=== PATIENT | male | born 1945 | race Caucasian/White ===

== ENCOUNTER 2016-12-18 10:27 | Inpatient (IN) ==
--- NOTE | 2016-12-18 12:03 | CT Report ---
CT head/brain wo con INDICATION: Vision changes Dizziness The total DLP is 1073 mGy*cm. COMPARISON: Noncontrast CT head dated 06/18/2012 Technique: Serial axial tomographic images of the brain were obtained without the use of intravenous contrast. Dose reduction: This CT exam was performed using one or more of the following dose reduction techniques: Automated exposure control, automated adjustment of the mA and/or KV according to patient size, or use of iterative reconstruction technique. Findings: Mild generalized atrophy is noted with mild prominence of the sulci and cortical volume loss. Periventricular white matter hypodensity changes are noted bilaterally which do not demonstrate mass effect and are nonspecific but favored to represent sequela of chronic microvascular ischemia. There is no evidence of vascular territory infarct or acute intracranial hemorrhage. The vogt-white matter differentiation is generally maintained. There is no hydrocephalus. The basilar cisterns are patent. The visualized paranasal sinuses, mastoid air cells and middle ear cavities are predominantly clear. Filling defects within the right external ear canal likely represent cerumen impaction. The included orbits and their contents appear within normal limits. The visualized osseous structures and overlying soft tissues of the skull and face demonstrate no acute abnormality. IMPRESSION: No acute intracranial abnormality. Mild generalized atrophy and sequela of chronic microvascular ischemia. PROCEDURE INTERPRETED AT [facility] DEPARTMENT OF RADIOLOGY Final Report Signed by: Wayne Mueller
[2016-12-18 12:06] LABS: Basophils # 0.1 10*3/uL (0.0-0.2); Eosinophils # 0.4 10*3/uL (0.0-0.87); Eosinophils % 5.7 % (0.00-10.9); Hematocrit 44.7 VOL% (42.0-52.0); Hemoglobin 15.4 GM/DL (14.0-18.0); Immature Granulocytes % 0.2 %; Immature Granulocytes Absolute 0.01 #; Lymphocytes # 1.9 10*3/uL (1.4-4.0); Lymphocytes % 30.2 % (21.2-54.2); Mean Corpuscular HGB Conc 34.5 GM/DL (32-36); Mean Corpuscular Hemoglobin 32 PG (27-34); Mean Corpuscular Volume 91.4 FL (87-102); Mean Platelet Volume 9.9 FL (9.6-12.0); Monocytes # 0.5 10*3/uL (0.11-0.8); Neutrophils # 3.4 10*3/uL (1.4-7.4); Neutrophils % 54.9 % (38.7-73.9); Platelet Count 134 T/CUMM (130-400); Red Blood Count 4.89 MC/CUMM (3.8-5.5); Red Cell Distribution Width 12.8 % (9.3-17.3); White Blood Count 6.2 T/CUMM (4-12)
[2016-12-18] MEDS ORDERED: LABETALOL 20 MG/4 ML SYRINGE IV PRN (12:18)
[2016-12-18 12:38] LABS: Albumin 3.7 G/DL (3.4-5.0); Bilirubin,Total 0.6 MG/DL (0.2-1.0); Calcium 9.2 MG/DL (8.5-10.1); Magnesium 2.4 MG/DL (1.8-2.4); Osmolality,Calculated 284.1 MOS/KG (273-304); Potassium 4.8 MMOL/L (3.5-5.1); Total Protein 6.6 G/DL (6.4-8.3)
--- NOTE | 2016-12-18 12:56 | Hospitalist History & Physical ---
<Brenda Bellamy - Last Filed: 12/18/16 12:41> Assessment and Plan - Time spent with patient Time spent with patient: Greater than 30 minutes (1) TIA (transient ischemic attack) Status: Acute Assessment and plan: Admit. MRI. MRA. Carotid Dopplers. Consult Neurology. Lab in a.m. Bedside swallow evaluation. Consult OT and PT. Continue BP home medications. Current Visit: Yes History of Present Illness Chief complaint: dizziness, brief vision changes History of present illness: Mr. Srinivasan is a very pleasant 71 year old white male presented to [facility] ED for complaint of an episode today of vision changes (1/2 of his vision field went dark), with concurrent dizziness and headache. Patient verbalized episode occurred around 9 a.m. and lasted for a few minutes. He states "it was like a curtain came over 1/2 of my eye, so I moved the piece of paper that I was looking at, to see better". Patient has a past medical history of TIA, hypertension, and kidney stone. He reports his last TIA on . He had followed up with Dr Rene about 5 days ago and was scheduled for MRI for this Saturday. Social history: does not smoke, no alcohol and no illicit drug use. His vision is back to normal at present but still having some dizziness and Headache. Denies any fatigue, nausea, vomiting, chest pain, chills or fever. After Discussion with Dr Gallegos, ED physician and Dr Celaya, Hospitalist Physician, it is in agreement that the patient needs to be admitted to hospitalist services for further evaluation. Home medications to be reconciled to foloow. Full Code Status. PCP: Dr rene Home Medications Medication Instructions Recorded Confirmed Type Aspirin EC Tab 81 mg PO DAILY 12/18/16 12/18/16 History Garlic [Garlique] 5,000 mcg PO DAILY 12/18/16 12/18/16 History Multivitamin [Multivitamins] 1 each PO BID 12/18/16 12/18/16 History [place]-3/Dha/Epa/Fish Oil [[place]-3 1,000 mg PO BID 12/18/16 12/18/16 History Fish Oil 1,000 mg Sfgl] Valsartan 160 mg PO DAILY 12/18/16 12/18/16 History Allergies Allergy/AdvReac Type Severity Reaction Status Date / Time morphine AdvReac Hallucinati Verified 12/18/16 10:45 ng Medical,Surgical,& Family Hx - Medical History Cardio: History of: Hypertension Neurology: History of: TIA Genitourinary: History of: Kidney Stones - Surgical History Thoracic Surgeries: Surgical HX of;: Lithotripsy Orthopedic Surgeries: Surgical HX of;: Orthopedic Surgery (right knee scope; both shoulder scopes) - Social History Smoking Status: Never smoker Frequency of Alcohol Use: None Type of Drug Use: None Review of systems: ROS completed and pertinent positives and negatives in HPI Exam - Constitutional Vitals: Period Temp Pulse Resp BP Sys/Mcarthur Pulse Ox Last 24 Hr 98.5 F-98.5 F 55-61 16-17 140-159/90-107 96-99 General appearance: normal weight - Head Head exam: Present: normal inspection - Eye Eye exam: Present: EOMI Pupils: Present: JAROCHO - Neck Neck exam: Present: normal inspection - Respiratory Respiratory exam: Present: clear to auscultation bilaterally - Cardiovascular Cardiovascular exam: Present: regular rate and rhythm - GI/Abdominal GI/Abdominal exam: Present: normal bowel sounds, soft. Absent: tenderness, rebound - Extremities Exam Extremities exam: Present: full ROM. Absent: edema - Neurological Exam Neurological exam: Present: alert, oriented X3, CN II-XII intact (patient does has some dizziness and c/o mild headache; able to move all extremeties; follows commands; ) - Psychiatric Psychiatric exam: Present: normal affect, normal mood - Skin Skin exam: Present: normal color, warm, dry Results - Labs CBC & BMP: 12/18/16 12:02 12/18/16 12:02 Lab Results: I have reviewed the past 24 hour labs - Diagnostic Findings Procedure: CT: report reviewed by me (Head: No acute intracranial abnormality, mild generalized atrophy and sequela of chronic microvascular ischemia) <Israel Celaya - Last Filed: 12/18/16 13:25> Assessment and Plan (1) TIA (transient ischemic attack) Status: Acute Current Visit: Yes History of Present Illness History of present illness: Mr. Srinivasan is a 71 year old male with a 23 year history of high blood pressure on active treatment. Patient is chronically on low-dose aspirin therapy. Last week the patient had a few minutes of left hand lack of dexterity while typing. He noticed no weakness no involvement of the right hand. He is a right hand dominant but was unaware of any gross motor dysfunction on the left side. He seen his primary provider who is scheduled him for 21 December for an MRI of the head. Patient presents to emergency room today with episode of complete loss of vision over the lower 1/3-1/2 of the visual field. Vision was clear in the upper portion. The distribution of the vision loss which uniform the patient did not test whether it was unilateral or not. Shortly after this began he had a sensation of lightheadedness followed by a dull headache. The visual changes lasted only for a few minutes and the overall syndrome lasted probably 15-30 minutes. He resolve completely. On this occasion there was no upper extremity symptoms. Patient's neurologic examination is intact. His cardiopulmonary examination is unremarkable with no evidence of peripheral atherosclerosis. He has history of renal stones with previous parathyroidectomy but normal calcium level on blood work today I have reviewed the nursing admit note and orders. Medical,Surgical,& Family Hx - Medical History Genitourinary: History of: Kidney Stones (History of hyperparathyroidism) - Surgical History Orthopedic Surgeries: Surgical HX of;: Orthopedic Surgery Exam - Constitutional Vitals: Period Temp Pulse Resp BP Sys/Mcarthur Pulse Ox Last 24 Hr 98.5 F-98.5 F 55-61 16-17 140-164/90-107 96-99 Results - Labs CBC & BMP: 12/18/16 12:02 12/18/16 12:02
--- NOTE | 2016-12-18 12:59 | Ultrasound Report ---
Bilateral carotid Doppler. Indication: TIA. Grayscale, color-flow, and spectral analysis performed and interpreted. Comparison: June 18, 2012. Mild atherosclerotic changes are seen at the right carotid bulb and the origins of both external carotid arteries. The right internal carotid artery peak systolic velocity is 64 cm/s, with an IC/CC ratio of 0.8. The left internal carotid artery peak systolic velocity is 73 cm/s, with an IC/CC ratio of 1.0. There is antegrade flow within each vertebral artery. Impression: Using NASCET criteria, findings consistent with less than 50% stenosis bilaterally. PROCEDURE INTERPRETED AT [facility] DEPARTMENT OF RADIOLOGY Final Report Signed by: Dr. Leesa Hayden
[2016-12-18 14:07] LABS: Cholesterol 211 MG/DL (50-200); HDL Cholesterol 44 MG/DL (40-60); Triglycerides 234 MG/DL (2-150); Troponin I Only < 0.015 NG/ML (0.00-0.045); VLDL CHOLESTEROL 46.8 MG/DL
--- NOTE | 2016-12-18 14:56 | Event Note ---
Patient gone for MRI.
--- NOTE | 2016-12-18 15:58 | ECHO Report ---
Zenobia Srinivasan Exam Date: 12/18/2016 12:51 Referring Physician: Technologist: maryan Alford ARDMS, RVT Age: 71 Ht (in): 69 Wt (lb): 180 Gender: M Exam Location: [facility] Echo Indications: Essential (primary) hypertension, Dizziness and giddiness, Visual changes, TIA, Headache BP: 164 / 100 HR: 57 Rhythm: Sinus Technical Quality: Fair IMPRESSIONS 1. Left ventricle is upper limits normal size with mild concentric left ventricular hypertrophy. Ejection fraction is 45-50%. 2. Right ventricle is mildly dilated. 3. Left atrium is mildly dilated. 4. Aortic valve slightly sclerotic but without stenosis or insufficiency. 5. Mitral valve is minimally sclerotic thickened with mild regurgitation. 6. There is no gross source for emboli visualized. MEASUREMENTS (Male / Female) Normal Values 2D ECHO LV Diastolic Diameter PLAX 5.9 cm 4.2 - 5.9 / 3.9 - 5.3 cm LV Systolic Diameter PLAX 4.2 cm LV Fractional Shortening PLAX 28.9 % IVS Diastolic Thickness 1.1 cm 0.6 - 1.0 / 0.6 - 0.9 cm LVPW Diastolic Thickness 1.1 cm 0.6 - 1.0 / 0.6 - 0.9 cm RV Internal Dim ED PLAX 4.3 cm Aortic Root Diameter 4.0 cm LA Systolic Diameter LX 4.1 cm 3.0 - 4.0 / 2.7 - 3.8 cm DOPPLER TR Peak Velocity 239.0 cm/s TR Peak Gradient 22.8 mmHg FINDINGS Left Ventricle Left ventricle is upper limits of normal size. Mild left ventricular hypertrophy. Left ventricular ejection fraction is estimated at 45-50 %. Right Ventricle Mildly increased right ventricular size. Right Atrium The right atrium is normal size. Left Atrium The left atrium is mildly enlarged. Mitral Valve Mitral valve sclerosis. Mild mitral valve regurgitation. Aortic Valve Aortic valve is probably a tricuspid structure there is minimally sclerotic without stenosis. There is no aortic regurgitation. Tricuspid Valve Morphologically normal tricuspid valve. Trace tricuspid valve regurgitation. Tricuspid regurgitation velocities suggest a PAP of 28- 33 mmHg. Pulmonic Valve Morphologically normal pulmonic valve without significant stenosis. There is no pulmonic regurgitation. Pericardium Normal pericardium without effusion. Aorta Normal ascending aorta dimension. Servando Perez MD (Electronically Signed) Final Date: 18 December 2016 15:56
--- NOTE | 2016-12-18 16:03 | Magnetic Resonance Report ---
Exam: MR head/brain wo con Date: 12/18/2016 12:20 PM Comparison: CT brain 12/18/2016 Indication: TIA Technical: 1.5 Rosana magnet Axial T1 pre-and postcontrast, ADC, DWI, FLAIR, gradient echo and FSE T2 Sagittal T1 precontrast, Coronal FSE T2 Contrast: 0 cc Dotarem Findings: Exam reveals abnormal ADC diffusion imaging with an area of acute infarction in the left posterior parietal lobe.. The brainstem normal signal characteristics. Minimal atrophic changes in the cerebellum. The cerebral hemispheres exhibit no other areas of abnormal signal are present in the cerebral hemispheres other than the abnormal signal characteristics in the acute infarction in the ADC and DWI image and the left parietal lobe posteriorly. The corpus callosum is unremarkable. The seventh and eighth cranial nerves and cerebral pontine angles are intact. The pituitary gland, infundibulum and optic chiasm are intact. The paranasal sinuses exhibit normal signal characteristics. The mastoid sinuses are unremarkable. The globes and intra-and extraconal spaces are unremarkable. Impression: 1. Acute infarction involving the left parietal lobe posterior medially 2. Minimal atrophic changes in the cerebellum PROCEDURE INTERPRETED AT [facility] DEPARTMENT OF RADIOLOGY Final Report Signed by: Dr. Antonio Pedraza
--- NOTE | 2016-12-18 16:05 | Magnetic Resonance Report ---
Exam: MR angio head wo tank (MICHELLE) Date: 12/18/2016 12:21 PM Indication: TIA Comparison: Routine CT 12/18/2016 and MRI of the brain Technical 3-D slab imaging and 3-D reproduction images were obtained without contrast on the 1.2 Rosana magnet Findings: The A1 and A2 segment, M1 and M2 bifurcation trifurcation regions are intact. The posterior cerebral P1 and P2 segments are intact the basilar artery and internal carotid arteries and proximal vertebral arteries are intact. The anterior and posterior to indicating arteries are not well seen. Impression: 1. No obvious stenosis or aneurysmal dilatation present. PROCEDURE INTERPRETED AT [facility] DEPARTMENT OF RADIOLOGY Final Report Signed by: Dr. Antonio Pedraza
[2016-12-18] MEDS: SODIUM CHLORIDE 0.9% 1,000 ML IV SCH (16:13)
[2016-12-19] MEDS: SODIUM CHLORIDE 0.9% 1,000 ML IV SCH ×2 (00:30→04:13)
[2016-12-19 05:06] LABS: Basophils % 0.7 % (0.0-0.8); Eosinophils # 0.3 10*3/uL (0.0-0.87); Eosinophils % 5.9 % (0.00-10.9); Hematocrit 42.1 VOL% (42.0-52.0); Hemoglobin 14.7 GM/DL (14.0-18.0); Immature Granulocytes % 0.4 %; Immature Granulocytes Absolute 0.02 #; Lymphocytes # 1.7 10*3/uL (1.4-4.0); Lymphocytes % 30.3 % (21.2-54.2); Mean Corpuscular HGB Conc 34.9 GM/DL (32-36); Mean Corpuscular Hemoglobin 32 PG (27-34); Mean Corpuscular Volume 90.5 FL (87-102); Mean Platelet Volume 10.4 FL (9.6-12.0); Monocytes # 0.3 10*3/uL (0.11-0.8); Monocytes % 5.9 % (1.7-12.7); Neutrophils # 3.2 10*3/uL (1.4-7.4); Neutrophils % 56.8 % (38.7-73.9); Platelet Count 133 T/CUMM (130-400); Red Blood Count 4.65 MC/CUMM (3.8-5.5); Red Cell Distribution Width 12.6 % (9.3-17.3); White Blood Count 5.6 T/CUMM (4-12)
--- NOTE | 2016-12-19 07:21 | Hospitalist Progress Note ---
Assessment and Plan (1) TIA (transient ischemic attack) Status: Acute Assessment and plan: MRI positive for a focal left parietal acute lesion. Current Visit: Yes (2) Hypertension Status: Chronic Current Visit: Yes Hospitalist: Subjective Interval history: 71-year-old male hypertensive on chronic aspirin therapy had 2 events over the last week. The first approximately 1 week ago involved discoordination of left upper extremity while trying to type. He had been seen by his primary provider and scheduled for an MRI on 21 December. He presented to the emergency room yesterday with visual field defect. His CT scan of the head was unremarkable his MRI demonstrates acute infarction in the left parietal lobe posteriorly with minimal atrophic changes in the cerebellum. His MRA was unremarkable. Patient has had no recurrence of the symptoms. He was unavailable for neurology consult last evening. Vital signs overnight were stable. Exam - Constitutional Vitals: Period Temp Pulse Resp BP Sys/Mcarthur Pulse Ox Last 24 Hr 96.6 F-98.5 F 51-64 16-22 135-164/78-107 94-99 General appearance: normal weight, no acute distress - Respiratory Respiratory exam: Present: clear to auscultation bilaterally. Absent: rales, rhonchi, wheezes - Cardiovascular Cardiovascular exam: Present: regular rate and rhythm. Absent: carotid bruit, diastolic murmur, systolic murmur - GI/Abdominal GI/Abdominal exam: Present: normal bowel sounds. Absent: tenderness - Extremities Exam Extremities exam: Absent: edema - Neurological Exam Neurological exam: Present: alert, oriented X3 Results - Labs CBC & BMP: 12/19/16 04:27 12/18/16 12:02 - Diagnostic Findings Procedure: Ultrasound: image reviewed by me (Cardiac ultrasound interpretation is unremarkable review suggest possible atrial septal aneurysm.) Specialty Discharge - Follow Up or Referrals
--- NOTE | 2016-12-19 08:08 | EKG Report ---
Stationary ECG Study [facility] ER Test Date: 12/18/2016 12:06:42 PM Pat Name: MARLENE ZURITA Department: Room: 423 Gender: M Bulb Filler: : 1945 Requested by: Thomas Han Order Number: [id number] Iman MD: TUSHAR COX Intervals [place] Rate: 52 P: 41 AK: 157 QRS: -1 QRSD: 146 T: -1 QT: 445 QTc: 425 Interpretive Statements SINUS BRADYCARDIA RIGHT BUNDLE BRANCH BLOCK Electronically Signed On 12-19-16 09:26:20 CDT by TUSHAR COX [email or web address]
[2016-12-19] MEDS ORDERED: ASPIRIN EC 81 MG TABLET PO SCH (09:00)
[2016-12-19] MEDS ORDERED: VALSARTAN 160 MG TABLET PO SCH (09:00)
[2016-12-19 16:09] VITALS: BP 148/86
--- NOTE | 2016-12-19 16:26 | Neurology Consult Note ---
History of Present Illness History of present illness: Mr. Srinivasan is a 71 year old right-handed white gentleman presented to [facility] for complaint of vision difficulties and right-sided mild weakness which happened yesterday. Is also complaining concurrent dizziness and headache. Patient verbalized episode occurred around 9 a.m. and lasted for a few minutes yesterday morning. He states "it was like a curtain came over 1/2 of my eye, so I moved the piece of paper that I was looking at, to see better". A week ago he had an episode where his left arm went numb and weak. Patient has a past medical history of TIA, hypertension, and kidney stone. He underwent MRI of the brain which revealed left posterior parietal lobe acute infarct. Lipid profile is abnormal. Carotid ultrasound and echo looks okay Home Medications Medication Instructions Recorded Confirmed Type Aspirin EC Tab 81 mg PO DAILY 12/18/16 12/18/16 History Garlic [Garlique] 5,000 mcg PO DAILY 12/18/16 12/18/16 History Multivitamin [Multivitamins] 1 each PO BID 12/18/16 12/18/16 History [place]-3/Dha/Epa/Fish Oil [[place]-3 1,000 mg PO BID 12/18/16 12/18/16 History Fish Oil 1,000 mg Sfgl] Valsartan 160 mg PO DAILY 12/18/16 12/18/16 History Allergies Allergy/AdvReac Type Severity Reaction Status Date / Time morphine AdvReac Hallucinati Verified 12/18/16 10:45 ng 12 point system: reviewed and no additional remarkable complaints except as stated Medical,Surgical,& Family Hx - Medical History Cardio: History of: Hypertension Neurology: History of: TIA Genitourinary: History of: Kidney Stones (History of hyperparathyroidism) - Surgical History Thoracic Surgeries: Surgical HX of;: Lithotripsy Orthopedic Surgeries: Surgical HX of;: Orthopedic Surgery - Social History Smoking Status: Never smoker Frequency of Alcohol Use: None Type of Drug Use: None Exam - Constitutional Vitals: Period Temp Pulse Resp BP Sys/Mcarthur Pulse Ox Last 24 Hr 97.1 F-97.9 F 51-64 18-22 135-161/78-91 94-95 Exam: GENERAL: Patient is in no acute distress. NECK: Neck is supple. There is no JVD. No carotid bruits present. No thyroid masses. CVS: First and second heart sounds are normal. There is no S3 present. Regular rate and rhythm. RESPIRATORY: Lungs are clear to auscultation without any rales or rhonchi. ABDOMEN: Soft and non-tender. Bowel sounds are present. There is no hepatosplenomegaly. EXT: There is no palpable edema. Peripheral pulses are present. Skin: No rashes Central Nervous system: General: Alert, awake and Oriented x 3 Speech: Fluent Comprehension: Intact and normal Facial expressions: Normal Cranial Nerves: CN1/Olfactory: Normal CN II/ Optic: Normal, Visual Cleaning unreliable CN III, and : JAROCHO & EOMI CN V: Normal & intact CN VII: face is symmetric CNVIII: Normal CN XI/X/XI/XII: Intact and Normal Motor: Bulk and Tone is normal. Strength in the right 5/5 Strength in the left 5/5 Sensory: Grossly intact for all the modalities of PP, LT and temp sense Reflexes: 1+ and symmetrical Cerebellar function: Normal finger to nose and heel to jin testing. Toes: Equivocal Gait: Normal heel to heel and toe to toe and tandem walk. Results - Labs CBC & BMP: 12/19/16 04:27 12/18/16 12:02 Assessment and Plan (1) Acute CVA (cerebrovascular accident) Status: Acute Assessment and plan: Stop aspirin Aggrenox 1 p.o. twice daily Current Visit: Yes (2) Hyperlipidemia Status: Acute Assessment and plan: Start Crestor 10 mg p.o. at bedtime Current Visit: Yes (3) Hypertension Status: Chronic Assessment and plan: Continue current medications. Blood pressure is quite stable. Okay to go home from neuro stand point Follow-up in 4 weeks Current Visit: Yes Specialty Discharge - Follow Up or Referrals Follow up with: Zac Turner MD [Physician] - 1 Month
--- NOTE | 2016-12-19 16:55 | Discharge Summary ---
Hospital Course - Hospital Course Hospital Course: 71-year-old male chronic hypertensive on daily aspirin therapy sustained 2 separate in time as well as in distribution neurologic events over the preceding week. Initial CT scan of the head was unremarkable with subsequent MRI demonstrating a lesion consistent with a small area of acute infarction in the left parietal lobe posteriorly. There was slight cerebellar atrophy. Vascular study with MRI was in echocardiographic study evaluation was negative and the patient was in sinus rhythm throughout the hospital stay. Evaluated by neurology who recommended discontinuance of aspirin and initiation of Aggrenox. They also recommended initiation of lipid-lowering therapy however the patient 's family has concerns regarding potential muscle related side effects and declined use the agents. He is being discharged at this time to continue his blood pressure medications with the adjustments noted above. Diagnosis - Discharge Diagnosis (1) TIA (transient ischemic attack) Status: Acute (2) Hypertension Status: Chronic Specialty Discharge - Follow Up or Referrals Follow up with: Zac Turner MD [Physician] - 1 Month Discharge Plan - Discharge Data Disposition: Disch To Home/Self Care Condition at Discharge: Stable Discharge Diet: advance to your usual diet Activity: resume usual activities as tolerated - Discharge Medications New Dipyridamole/Aspirin 200-25 [Aggrenox] 1 capsule PO BID #60 capsule Continue [place]-3/Dha/Epa/Fish Oil [[place]-3 Fish Oil 1,000 mg Sfgl] 1,000 mg PO BID Valsartan 160 mg PO DAILY Multivitamin [Multivitamins] 1 each PO BID Discontinued Aspirin EC Tab 81 mg PO DAILY No Action Garlic [Garlique] 5,000 mcg PO DAILY - Follow Up or Referral Follow Up: Zac Turner MD [Physician] - 1 Month - Forms/Instructions Instructions: Ischemic Stroke (DC) Exam - Constitutional Vitals: Period Temp Pulse Resp BP Sys/Mcarthur Pulse Ox Last 24 Hr 97.1 F-97.9 F 56-64 18-22 135-161/78-91 94-95 Discharge Results Procedures and tests throughout hospitalization: Pending Orders 12/18/16 11:51 Thyroid Function Wallace, S Stat Labs on day of discharge: Labs from last 24 hours 12/19/16 12/18/16 04:27 17:52 WBC 5.6 RBC 4.65 Hgb 14.7 Hct 42.1 MCV 90.5 MCH 32 MCHC 34.9 RDW 12.6 Plt Count 133 MPV 10.4 Neut % (Auto) 56.8 Lymph % (Auto) 30.3 [place] % (Auto) 5.9 Eos % (Auto) 5.9 Baso % (Auto) 0.7 Neut # (Auto) 3.2 Lymph # (Auto) 1.7 [place] # (Auto) 0.3 Eos # (Auto) 0.3 Baso # (Auto) 0.0 Immature Gran % 0.4 Nucleated RBC % 0.0 Immature Gran # 0.02 Nucleated RBCs # 0.00 Troponin I < 0.015 DS: Provider Date of admission: 12/18/16 12:13 Primary care physician: Lucho Long MD Attending physician on admission: Israel Celaya MD Consults: 12/18/16 12:18 Consult to Case Mgmt/Social Srvs [CONS] Routine Reason for Case Mgmt/Social Srvs: Discharge Planning Consult to Occupational Therapy [CONS] Routine Reason for Occupational Therapy: Evaluate and Treat Consult Comment: Stroke Consult to Physical Therapy [CONS] Routine Reason for Physical Therapy: Evaluate and Treat Consult Comment: stroke 12/18/16 12:22 Consult to Physician [CONS] Routine Comment: TIA Consulting Provider: Zac Turner Consulting Provider Notified: Yes When should Consulting Provider be notified: Now Consult to Specialist Group: Neurology When should Consulting Provider be notified: Now Person Notified: lorenzo Date Notified: 12/18/16 Time Notified: 14:00 Discharging clinician: Israel Celaya MD Expected date of discharge: 12/19/16
[2016-12-19] MEDS ORDERED: DIPYRIDAMOLE/ASPIRIN 200-25 MG CAPSULE PO SCH (21:00)
[2016-12-19] MEDS ORDERED: ROSUVASTATIN 10 MG TABLET PO SCH (21:00)
--- NOTE | 2017-01-31 15:04 | Emergency Department Note ---
Rashi Aguayo Rolonda, am scribing for, and in the presence of, Thomas Gallegos MD 11:43. El Aguayo Phillip K, MD, personally performed the services described in this documentation, ascribed by Mone Markham in my presence, and it is both accurate and complete [id number] . Arrival - Arrival Chief Complaint: Dizziness Stated Complaint: stroke symptoms ED Nursing Triage Note: pt ambulatory to triage with c/o having dizziness with c /o not being able to see good out of right eye earlier today around 0900. pt states vision is better now in right now, c/o headache and still being dizzy. pt states he had a TIA on 12/10/2016. Mode of Arrival: Ambulatory Time Seen by Provider: 12/18/16 11:21 - History of Present Illness HPI Narrative: Pt is a 71 y/o male who ambulated to the ED with c/o vision change with an onset of hours ago. Pt has a PMHx of TIA and HTN and FHx of Strokes. He states that he las had a TIA 12/10/2016 and is f/u by Dr. Hagen; Pt last saw Dr. Hagen x5 days ago and has an upcoming appointment with him this week. Pt states that he is unsure of what exactly happened but he was attempting to write on a piece of paper when he noticed his vision was unclear which lasted 2- 3 minutes. He states that it was "like a curtain coming up from the bottom of the paper." During time of exam, pt's vision was back to nml. He confirms associated sxs of dizziness and GATES but denied CP, N/V, and SHx of smoking. No other complaint/pain in ED. Onset (ago): hour(s) Consistency: constant Severity: moderate Severity scale (1-10): 4 Allergies/Adverse Reactions: Allergies Allergy/AdvReac Type Severity Reaction Status Date / Time morphine AdvReac Hallucinati Verified 12/18/16 10:45 ng Home Medications: Home Medications Medication Instructions Recorded Confirmed Type Garlic [Garlique] 5,000 mcg PO DAILY 12/18/16 12/18/16 History Multivitamin [Multivitamins] 1 each PO BID 12/18/16 12/18/16 History [place]-3/Dha/Epa/Fish Oil [[place]-3 1,000 mg PO BID 12/18/16 12/18/16 History Fish Oil 1,000 mg Sfgl] Valsartan 160 mg PO DAILY 12/18/16 12/18/16 History Dipyridamole/Aspirin 200-25 1 capsule PO BID #60 capsule 12/19/16 Rx [Aggrenox] Review of System - Review of System 12 point system: reviewed and no additional remarkable complaints except as stated - Review of System Constitutional: Absent: chills, fever Eyes: Present: vision change. Absent: discharge, pain Head/Ears/Nose/Throat: Absent: earache, epistaxis Respiratory: Absent: cough, respiratory distress, wheezing Cardiovascular: Absent: chest pain, palpitations, dyspnea on exertion Gastrointestinal: Absent: abdominal pain, nausea, vomiting, diarrhea Musculoskeletal: Absent: arm pain, back pain, leg pain, neck pain Neurological: Present: headache (moderate), vertigo Psychiatric: Absent: anxiety Endocrine: Absent: fatigue Medical,Surgical,& Family Hx - Social History Smoking Status: Never smoker Frequency of Alcohol Use: None Type of Drug Use: None Exam Vital Signs: Vital Signs Temperature 97.8 F 12/19/16 16:00 Pulse Rate 60 12/19/16 16:00 Respiratory Rate 20 12/19/16 16:00 Blood Pressure 148/86 12/19/16 16:00 O2 Sat by Pulse Oximetry 94 L 12/19/16 16:00 - General General appearance: alert, in no apparent distress - Head Head exam: Present: atraumatic, normocephalic - Eye Eye exam: Present: PERRL, EOMI - ENT ENT exam: Present: mucous membranes moist. Absent: mucous membranes dry - Neck Neck exam: Present: full ROM. Absent: tenderness - Chest Chest inspection: Present: symmetric chest wall rise. Absent: tenderness - Respiratory Respiratory exam: Present: normal lung sounds bilaterally. Absent: wheezes - Cardiovascular Cardiovascular exam: Present: regular rate, normal rhythm, normal heart sounds. Absent: bradycardia - Abdominal Exam Abdominal exam: Present: soft, normal bowel sounds. Absent: tenderness - Extremities Exam Extremities exam: Present: full ROM. Absent: tenderness - Back Exam Back exam: Present: full ROM. Absent: tenderness - Neurological Exam Neurological exam: Present: alert, oriented X3, CN II-XII intact - Psychiatric Psychiatric exam: Present: normal affect, normal mood - Skin Skin exam: Present: warm, dry, intact, normal color. Absent: rash Results - Labs CBC & BMP: 12/19/16 04:27 12/18/16 12:02 Lab Results: I have reviewed the patients labs Labs: Laboratory Tests 12/18/16 12:02 WBC 6.2 RBC 4.89 Hgb 15.4 Hct 44.7 Plt Count 134 Baso % (Auto) 1.0 H Laboratory Tests 12/18/16 12:02 Sodium 142 Potassium 4.8 Chloride 105 Carbon Dioxide 30 BUN 19 H GFR Calculation 87 - EKG EKG results: interpreted by VERONICA, sinus rhythm (Sinus bradycardia) - Diagnostic Findings Procedure: CT: report reviewed by me (Head/Brain:No acute intracranial abnormality) Disposition Clinical Impression: TIA (transient ischemic attack) Case discussed with: patient Disposition: Still a Patient Condition: Stable New Prescriptions: Rx's Medication Instructions Recorded Dipyridamole/Aspirin 200-25 1 capsule PO BID #60 capsule 12/19/16 [Aggrenox]
== END 2016-12-19 18:12 | disposition home or self-care (01) | DRG 66 ==
LOC: N.ED 10:27 → N.EDINP 12:13 → N.4E 13:34
PROVIDERS: ADMIT Internal Medicine Cardiovascular Disease; ATTEND Internal Medicine Cardiovascular Disease

== ENCOUNTER 2020-08-16 11:34 | Inpatient (IN) ==
[2020-08-16] MEDS ORDERED: GLUCAGON 1 MG VIAL IM PRN (12:21)
[2020-08-16] MEDS ORDERED: ACETAMINOPHEN 325 MG TABLET PO PRN (12:21)
[2020-08-16] MEDS ORDERED: ONDANSETRON 4 MG/2 ML VIAL IV PRN (12:21)
[2020-08-16] MEDS ORDERED: DOCUSATE SODIUM 100 MG CAPSULE PO PRN (12:21)
[2020-08-16] MEDS ORDERED: DEXTROSE 50% 25 GM/50 ML VIAL IV PRN (12:21)
[2020-08-16] MEDS ORDERED: hydrALAZINE 20 MG/1 ML VIAL IV PRN (12:21)
[2020-08-16 13:35] LABS: Basophils % 0.1 % (0.0-0.8); Hematocrit 43.2 VOL% (42.0-52.0); Hemoglobin 14.8 GM/DL (14.0-18.0); Immature Granulocytes % 0.8 %; Immature Granulocytes Absolute 0.06 #; Lymphocytes # 0.5 10*3/uL (1.4-4.0); Lymphocytes % 6.8 % (21.2-54.2); Mean Corpuscular HGB Conc 34.3 GM/DL (32-36); Mean Corpuscular Volume 91.5 FL (87-102); Mean Platelet Volume 10.4 FL (9.6-12.0); Monocytes % 5.3 % (1.7-12.7); Platelet Count 159 T/CUMM (130-400); Red Blood Count 4.72 MC/CUMM (3.8-5.5); Red Cell Distribution Width 13.2 % (9.3-17.3)
[2020-08-16 13:49] LABS: PT Patient Result 10.9 SECS (9.8-11.9)
[2020-08-16 14:05] LABS: Albumin 3.3 G/DL (3.4-5.0); Bilirubin,Total 1.9 MG/DL (0.2-1.0); Osmolality,Calculated 275.1 MOS/KG (273-304); Potassium 4.2 MMOL/L (3.5-5.1); Total Protein 7.5 G/DL (5.0-7.5)
[2020-08-16 14:10] LABS: Ferritin 483.1 ng/ml (26-388)
[2020-08-16 14:14] LABS: Risk Ratio 3.55; Thyroid Stimulating Hormone 1.14 uIU/ml (0.358-3.74)
[2020-08-16 14:16] LABS: Bacteria,Urine Occasional /HPF (Few); Bilirubin,Urine Negative (Negative); Blood, Urine Negative (Negative); Glucose,Urine (UA) Negative (Negative); Ketones,Urine 5 mg/dL (Negative); Mucus,Urine Many /LPF (Occasional); Nitrite,Urine Negative (Negative); Protein,Urine 100 MG/DL; RBC,Urine 2 /HPF (0-4); Urine Appearance Slightly Hazy (Clear); Urine Color Amber (Yellow); Urine Specific Gravity 1.029 (1.001-1.035); Urine Urobilinogen < 2.0 EU/DL (0.2-1.0); WBC,Urine 2 /HPF (0-6)
[2020-08-16] MEDS ORDERED: NITROGLYCERIN SL 0.4 MG TABLET SL PRN (14:52)
[2020-08-16] MEDS: guaiFENesin/DM ER 600-30 MG TABLET PO PRN (16:11)
[2020-08-16] MEDS: cefTRIAXone 1,000 MG in SYRINGE 1 EACH IV SCH (16:25)
[2020-08-16] MEDS ORDERED: REMDESIVIR 200 MG in SODIUM CHLORIDE 0.9% 210 ML IV ONE (17:00)
[2020-08-16] MEDS: ALBUTEROL INHALER 18 GM INH SCH (18:18)
[2020-08-16] MEDS: carvediloL 3.125 MG TABLET PO SCH (21:51)
[2020-08-16] MEDS: ENOXAPARIN 40 MG/0.4 ML SYRINGE SUBCUT SCH (21:51)
[2020-08-16] MEDS: FAMOTIDINE 20 MG TABLET PO SCH (21:51)
[2020-08-16] MEDS: MULTIVITAMIN (CENTRUM) TABLET PO SCH (21:51)
[2020-08-16] MEDS: ASCORBIC ACID 500 MG TABLET PO SCH (21:52)
[2020-08-16] MEDS: TICAGRELOR 60 MG PO SCH (22:05)
[2020-08-16] MEDS: OMEGA 3 ACID ETHYL ESTERS 1 GM CAPSULE PO SCH (22:09)
[2020-08-17] MEDS: ALBUTEROL INHALER 18 GM INH SCH ×4 (01:59→20:08)
[2020-08-17 06:52] LABS: Hematocrit 42.2 VOL% (42.0-52.0); Hemoglobin 13.8 GM/DL (14.0-18.0); Immature Granulocytes % 1.2 %; Immature Granulocytes Absolute 0.08 #; Lymphocytes # 0.8 10*3/uL (1.4-4.0); Lymphocytes % 11.3 % (21.2-54.2); Mean Corpuscular HGB Conc 32.7 GM/DL (32-36); Mean Corpuscular Volume 95.3 FL (87-102); Mean Platelet Volume 10.4 FL (9.6-12.0); Monocytes % 7.3 % (1.7-12.7); Neutrophils % 80.2 % (38.7-73.9); Platelet Count 157 T/CUMM (130-400); Red Blood Count 4.43 MC/CUMM (3.8-5.5); Red Cell Distribution Width 13.4 % (9.3-17.3); White Blood Count 6.7 T/CUMM (4-12)
[2020-08-17 07:24] LABS: Ferritin 482.2 ng/ml (26-388)
[2020-08-17 07:34] LABS: Osmolality,Calculated 277.7 MOS/KG (273-304); Potassium 3.9 MMOL/L (3.5-5.1)
[2020-08-17] MEDS: ZINC GLUCONATE 50 MG TABLET PO SCH (10:06)
[2020-08-17] MEDS: CHOLECALCIFEROL 1,000 UNIT TABLET PO SCH (10:06)
[2020-08-17] MEDS: ASCORBIC ACID 500 MG TABLET PO SCH ×2 (10:11→20:56)
[2020-08-17] MEDS: guaiFENesin/DM ER 600-30 MG TABLET PO PRN (10:11)
[2020-08-17] MEDS: MULTIVITAMIN (CENTRUM) TABLET PO SCH ×2 (10:11→20:57)
[2020-08-17] MEDS: OMEGA 3 ACID ETHYL ESTERS 1 GM CAPSULE PO SCH ×2 (10:11→20:56)
[2020-08-17] MEDS: carvediloL 3.125 MG TABLET PO SCH ×2 (10:11→20:56)
[2020-08-17] MEDS: CETIRIZINE 10 MG TABLET PO SCH (10:11)
[2020-08-17] MEDS: AZITHROMYCIN 250 MG TABLET PO SCH (10:11)
[2020-08-17] MEDS: LOSARTAN 50 MG TABLET PO SCH (10:12)
[2020-08-17] MEDS: DEXAMETHASONE 4 MG/1 ML VIAL IV SCH (10:12)
[2020-08-17] MEDS: ASPIRIN EC 81 MG TABLET PO SCH (10:12)
[2020-08-17] MEDS: FLUTICASONE 50 MCG NASAL SPRAY 16 GM BOTTLE BOTH NARES SCH (10:13)
[2020-08-17] MEDS: TICAGRELOR 60 MG PO SCH ×2 (10:13→20:57)
[2020-08-17] MEDS: FAMOTIDINE 20 MG TABLET PO SCH ×2 (10:18→20:56)
[2020-08-17] MEDS: REMDESIVIR 100 MG in SODIUM CHLORIDE 0.9% 100 ML IV SCH (10:18)
[2020-08-17 10:51] LABS: ABG Base Excess -0.2 MMOL/L (-2.5-2.5); ABG HCO3 24.2 MMOL/L (20-26); ABG Oxygen Saturation 95.8 % (95-100); ABG PCO2 32.8 MM HG (35-48); ABG PH 7.453 (7.35-7.45); ABG TCO2 19.6 MMOL/L (23-27)
[2020-08-17] MEDS: cefTRIAXone 1,000 MG in SYRINGE 1 EACH IV SCH (17:11)
[2020-08-17] MEDS: ENOXAPARIN 40 MG/0.4 ML SYRINGE SUBCUT SCH (20:56)
[2020-08-17] MEDS: MELATONIN 3 MG TABLET PO PRN (20:56)
[2020-08-18] MEDS: ALBUTEROL INHALER 18 GM INH SCH ×4 (00:37→19:10)
[2020-08-18 07:07] LABS: Basophils % 0.2 % (0.0-0.8); Hemoglobin 14.5 GM/DL (14.0-18.0); Immature Granulocytes % 0.9 %; Immature Granulocytes Absolute 0.06 #; Lymphocytes # 0.6 10*3/uL (1.4-4.0); Lymphocytes % 8.3 % (21.2-54.2); Mean Corpuscular Volume 95.7 FL (87-102); Mean Platelet Volume 10.3 FL (9.6-12.0); Monocytes % 5.7 % (1.7-12.7); Neutrophils % 84.9 % (38.7-73.9); Platelet Count 200 T/CUMM (130-400); Red Cell Distribution Width 13.4 % (9.3-17.3); White Blood Count 6.6 T/CUMM (4-12)
[2020-08-18 07:30] LABS: Ferritin 577.7 ng/ml (26-388)
[2020-08-18 07:37] LABS: Calcium 8.5 MG/DL (8.5-10.1); Osmolality,Calculated 292.3 MOS/KG (273-304); Potassium 4.4 MMOL/L (3.5-5.1)
[2020-08-18] MEDS: REMDESIVIR 100 MG in SODIUM CHLORIDE 0.9% 100 ML IV SCH (08:27)
[2020-08-18] MEDS: DEXAMETHASONE 4 MG/1 ML VIAL IV SCH (08:27)
[2020-08-18] MEDS: carvediloL 3.125 MG TABLET PO SCH ×2 (08:28→21:09)
[2020-08-18] MEDS: CHOLECALCIFEROL 1,000 UNIT TABLET PO SCH (08:28)
[2020-08-18] MEDS: MULTIVITAMIN (CENTRUM) TABLET PO SCH ×2 (08:28→21:10)
[2020-08-18] MEDS: FAMOTIDINE 20 MG TABLET PO SCH ×2 (08:28→21:09)
[2020-08-18] MEDS: ZINC GLUCONATE 50 MG TABLET PO SCH (08:28)
[2020-08-18] MEDS: ASCORBIC ACID 500 MG TABLET PO SCH ×2 (08:28→21:09)
[2020-08-18] MEDS: LOSARTAN 50 MG TABLET PO SCH (08:28)
[2020-08-18] MEDS: CETIRIZINE 10 MG TABLET PO SCH (08:28)
[2020-08-18] MEDS: ASPIRIN EC 81 MG TABLET PO SCH (08:28)
[2020-08-18] MEDS: OMEGA 3 ACID ETHYL ESTERS 1 GM CAPSULE PO SCH ×2 (08:28→21:09)
[2020-08-18] MEDS: AZITHROMYCIN 250 MG TABLET PO SCH (08:29)
[2020-08-18] MEDS: TICAGRELOR 60 MG PO SCH ×2 (08:29→21:10)
[2020-08-18] MEDS: FLUTICASONE 50 MCG NASAL SPRAY 16 GM BOTTLE BOTH NARES SCH (08:29)
[2020-08-18] MEDS: guaiFENesin/DM ER 600-30 MG TABLET PO PRN (10:55)
[2020-08-18] MEDS: cefTRIAXone 1,000 MG in SYRINGE 1 EACH IV SCH (16:06)
[2020-08-18] MEDS: MELATONIN 3 MG TABLET PO PRN (21:09)
[2020-08-18] MEDS: ENOXAPARIN 40 MG/0.4 ML SYRINGE SUBCUT SCH (21:10)
[2020-08-19] MEDS: ALBUTEROL INHALER 18 GM INH SCH ×4 (00:45→18:25)
[2020-08-19 07:11] LABS: Basophils % 0.1 % (0.0-0.8); Hematocrit 36.2 VOL% (42.0-52.0); Hemoglobin 13.4 GM/DL (14.0-18.0); Immature Granulocytes Absolute 0.12 #; Lymphocytes # 0.6 10*3/uL (1.4-4.0); Lymphocytes % 5.1 % (21.2-54.2); Mean Corpuscular Volume 98.1 FL (87-102); Mean Platelet Volume 10.7 FL (9.6-12.0); Monocytes % 4.5 % (1.7-12.7); Neutrophils % 89.3 % (38.7-73.9); Platelet Count 224 T/CUMM (130-400); Red Blood Count 3.69 MC/CUMM (3.8-5.5); Red Cell Distribution Width 14.2 % (9.3-17.3); White Blood Count 12.4 T/CUMM (4-12)
[2020-08-19 07:45] LABS: Calcium 8.6 MG/DL (8.5-10.1); Osmolality,Calculated 295.3 MOS/KG (273-304); Potassium 3.9 MMOL/L (3.5-5.1)
[2020-08-19 07:48] LABS: Ferritin 462.6 ng/ml (26-388)
[2020-08-19] MEDS: TICAGRELOR 60 MG PO SCH ×2 (09:05→20:30)
[2020-08-19] MEDS: MULTIVITAMIN (CENTRUM) TABLET PO SCH ×2 (09:05→20:29)
[2020-08-19] MEDS: carvediloL 3.125 MG TABLET PO SCH ×2 (09:05→20:29)
[2020-08-19] MEDS: CETIRIZINE 10 MG TABLET PO SCH (09:05)
[2020-08-19] MEDS: AZITHROMYCIN 250 MG TABLET PO SCH (09:05)
[2020-08-19] MEDS: ZINC GLUCONATE 50 MG TABLET PO SCH (09:05)
[2020-08-19] MEDS: DEXAMETHASONE 4 MG/1 ML VIAL IV SCH (09:05)
[2020-08-19] MEDS: ASPIRIN EC 81 MG TABLET PO SCH (09:05)
[2020-08-19] MEDS: CHOLECALCIFEROL 1,000 UNIT TABLET PO SCH (09:05)
[2020-08-19] MEDS: LOSARTAN 50 MG TABLET PO SCH (09:05)
[2020-08-19] MEDS: FAMOTIDINE 20 MG TABLET PO SCH ×2 (09:05→20:29)
[2020-08-19] MEDS: ASCORBIC ACID 500 MG TABLET PO SCH ×2 (09:05→20:30)
[2020-08-19] MEDS: OMEGA 3 ACID ETHYL ESTERS 1 GM CAPSULE PO SCH ×2 (09:08→20:29)
[2020-08-19] MEDS: FLUTICASONE 50 MCG NASAL SPRAY 16 GM BOTTLE BOTH NARES SCH (09:08)
[2020-08-19] MEDS: REMDESIVIR 100 MG in SODIUM CHLORIDE 0.9% 100 ML IV SCH (10:02)
[2020-08-19] MEDS: cefTRIAXone 1,000 MG in SYRINGE 1 EACH IV SCH (16:03)
[2020-08-19] MEDS: ENOXAPARIN 40 MG/0.4 ML SYRINGE SUBCUT SCH (20:29)
[2020-08-19] MEDS: MELATONIN 3 MG TABLET PO PRN (20:30)
[2020-08-20] MEDS: ALBUTEROL INHALER 18 GM INH SCH ×4 (00:21→18:09)
[2020-08-20 03:55] LABS: Basophils % 0.2 % (0.0-0.8); Hemoglobin 13.3 GM/DL (14.0-18.0); Lymphocytes # 0.5 10*3/uL (1.4-4.0); Lymphocytes % 5.3 % (21.2-54.2); Mean Corpuscular HGB Conc 36.9 GM/DL (32-36); Mean Platelet Volume 10.2 FL (9.6-12.0); Neutrophils % 88.5 % (38.7-73.9); Platelet Count 238 T/CUMM (130-400); Red Blood Count 3.75 MC/CUMM (3.8-5.5); Red Cell Distribution Width 14.1 % (9.3-17.3); White Blood Count 10.2 T/CUMM (4-12)
[2020-08-20 04:57] LABS: Albumin 2.2 G/DL (3.4-5.0); Calcium 8.5 MG/DL (8.5-10.1); Ferritin 417.9 ng/ml (26-388); Osmolality,Calculated 290.5 MOS/KG (273-304); Potassium 4.2 MMOL/L (3.5-5.1)
[2020-08-20 06:00] LABS: Sedimentation Rate-Westergren 81 MM/HR (0-20)
[2020-08-20] MEDS: CHOLECALCIFEROL 1,000 UNIT TABLET PO SCH (09:50)
[2020-08-20] MEDS: REMDESIVIR 100 MG in SODIUM CHLORIDE 0.9% 100 ML IV SCH (09:50)
[2020-08-20] MEDS: ASPIRIN EC 81 MG TABLET PO SCH (09:50)
[2020-08-20] MEDS: OMEGA 3 ACID ETHYL ESTERS 1 GM CAPSULE PO SCH ×2 (09:50→20:24)
[2020-08-20] MEDS: MULTIVITAMIN (CENTRUM) TABLET PO SCH ×2 (09:50→20:24)
[2020-08-20] MEDS: FLUTICASONE 50 MCG NASAL SPRAY 16 GM BOTTLE BOTH NARES SCH (09:50)
[2020-08-20] MEDS: FAMOTIDINE 20 MG TABLET PO SCH ×2 (09:50→20:24)
[2020-08-20] MEDS: carvediloL 3.125 MG TABLET PO SCH ×2 (09:50→20:24)
[2020-08-20] MEDS: ASCORBIC ACID 500 MG TABLET PO SCH ×2 (09:50→20:24)
[2020-08-20] MEDS: ZINC GLUCONATE 50 MG TABLET PO SCH (09:50)
[2020-08-20] MEDS: CETIRIZINE 10 MG TABLET PO SCH (09:50)
[2020-08-20] MEDS: DEXAMETHASONE 4 MG/1 ML VIAL IV SCH (09:50)
[2020-08-20] MEDS: AZITHROMYCIN 250 MG TABLET PO SCH (09:50)
[2020-08-20] MEDS: LOSARTAN 50 MG TABLET PO SCH (09:50)
[2020-08-20] MEDS: TICAGRELOR 60 MG PO SCH ×2 (09:50→20:24)
[2020-08-20] MEDS: cefTRIAXone 1,000 MG in SYRINGE 1 EACH IV SCH (15:50)
[2020-08-20] MEDS: ENOXAPARIN 40 MG/0.4 ML SYRINGE SUBCUT SCH (20:24)
[2020-08-20] MEDS: MELATONIN 3 MG TABLET PO PRN (20:25)
[2020-08-21] MEDS: ALBUTEROL INHALER 18 GM INH SCH ×4 (00:16→18:20)
[2020-08-21 04:06] LABS: Basophils % 0.3 % (0.0-0.8); Hemoglobin 13.4 GM/DL (14.0-18.0); Immature Granulocytes % 4.3 %; Immature Granulocytes Absolute 0.32 #; Lymphocytes # 0.6 10*3/uL (1.4-4.0); Lymphocytes % 7.9 % (21.2-54.2); Mean Corpuscular HGB Conc 37.2 GM/DL (32-36); Mean Corpuscular Volume 98.9 FL (87-102); Monocytes % 6.4 % (1.7-12.7); Neutrophils % 81.1 % (38.7-73.9); Platelet Count 247 T/CUMM (130-400); Red Blood Count 3.64 MC/CUMM (3.8-5.5); Red Cell Distribution Width 14.4 % (9.3-17.3); White Blood Count 7.5 T/CUMM (4-12)
[2020-08-21 04:26] LABS: Albumin 2.2 G/DL (3.4-5.0); Bilirubin,Total 0.4 MG/DL (0.2-1.0); Calcium 8.3 MG/DL (8.5-10.1); Ferritin 418.6 ng/ml (26-388); Osmolality,Calculated 288.7 MOS/KG (273-304); Potassium 4.4 MMOL/L (3.5-5.1)
[2020-08-21 07:52] LABS: Sedimentation Rate-Westergren 88 MM/HR (0-20)
[2020-08-21 08:42] LABS: Platelet Estimate Normal
[2020-08-21] MEDS: TICAGRELOR 60 MG PO SCH ×2 (09:35→20:00)
[2020-08-21] MEDS: LOSARTAN 50 MG TABLET PO SCH (09:35)
[2020-08-21] MEDS: MULTIVITAMIN (CENTRUM) TABLET PO SCH ×2 (09:35→20:00)
[2020-08-21] MEDS: CETIRIZINE 10 MG TABLET PO SCH (09:35)
[2020-08-21] MEDS: carvediloL 3.125 MG TABLET PO SCH ×2 (09:35→20:00)
[2020-08-21] MEDS: OMEGA 3 ACID ETHYL ESTERS 1 GM CAPSULE PO SCH ×2 (09:35→20:00)
[2020-08-21] MEDS: ASPIRIN EC 81 MG TABLET PO SCH (09:35)
[2020-08-21] MEDS: ZINC GLUCONATE 50 MG TABLET PO SCH (09:35)
[2020-08-21] MEDS: ASCORBIC ACID 500 MG TABLET PO SCH ×2 (09:35→20:00)
[2020-08-21] MEDS: FAMOTIDINE 20 MG TABLET PO SCH ×2 (09:35→20:00)
[2020-08-21] MEDS: DEXAMETHASONE 4 MG/1 ML VIAL IV SCH (09:35)
[2020-08-21] MEDS: FLUTICASONE 50 MCG NASAL SPRAY 16 GM BOTTLE BOTH NARES SCH (09:35)
[2020-08-21] MEDS: CHOLECALCIFEROL 1,000 UNIT TABLET PO SCH (09:35)
[2020-08-21] MEDS: cefTRIAXone 1,000 MG in SYRINGE 1 EACH IV SCH (16:10)
[2020-08-21] MEDS: MELATONIN 3 MG TABLET PO PRN (20:00)
[2020-08-21] MEDS: ENOXAPARIN 40 MG/0.4 ML SYRINGE SUBCUT SCH (20:00)
[2020-08-22 05:58] LABS: Albumin 2.1 G/DL (3.4-5.0); Bilirubin,Total 1.3 MG/DL (0.2-1.0); Calcium 8.5 MG/DL (8.5-10.1); Ferritin 363.2 ng/ml (26-388); Osmolality,Calculated 288.8 MOS/KG (273-304); Potassium 4.5 MMOL/L (3.5-5.1); Total Protein 5.8 G/DL (5.0-7.5)
[2020-08-22 06:06] LABS: Basophils # 0.1 10*3/uL (0.0-0.2); Basophils % 0.6 % (0.0-0.8); Eosinophils % 0.1 % (0.00-10.9); Hematocrit 41.5 VOL% (42.0-52.0); Immature Granulocytes % 7.8 %; Immature Granulocytes Absolute 0.63 #; Lymphocytes # 0.8 10*3/uL (1.4-4.0); Lymphocytes % 10.4 % (21.2-54.2); Mean Corpuscular HGB Conc 33.7 GM/DL (32-36); Mean Corpuscular Volume 92.4 FL (87-102); Mean Platelet Volume 9.8 FL (9.6-12.0); Neutrophils % 73.1 % (38.7-73.9); Platelet Count 268 T/CUMM (130-400); Red Blood Count 4.49 MC/CUMM (3.8-5.5); Red Cell Distribution Width 13.1 % (9.3-17.3); White Blood Count 8.1 T/CUMM (4-12)
[2020-08-22] MEDS: ALBUTEROL INHALER 18 GM INH SCH ×4 (06:14→20:36)
[2020-08-22 06:16] LABS: Lymphocytes 9 % (20-55); Platelet Estimate Adequate; Segmented Neutrophils 87 % (50-85); Total Cells Counted 100
[2020-08-22 06:53] LABS: Sedimentation Rate-Westergren 65 MM/HR (0-20)
[2020-08-22] MEDS: ZINC GLUCONATE 50 MG TABLET PO SCH (09:16)
[2020-08-22] MEDS: CHOLECALCIFEROL 1,000 UNIT TABLET PO SCH (09:16)
[2020-08-22] MEDS: OMEGA 3 ACID ETHYL ESTERS 1 GM CAPSULE PO SCH ×2 (09:16→20:33)
[2020-08-22] MEDS: DEXAMETHASONE 4 MG/1 ML VIAL IV SCH (09:16)
[2020-08-22] MEDS: carvediloL 3.125 MG TABLET PO SCH (09:17)
[2020-08-22] MEDS: ASCORBIC ACID 500 MG TABLET PO SCH ×2 (09:17→20:33)
[2020-08-22] MEDS: CETIRIZINE 10 MG TABLET PO SCH (09:17)
[2020-08-22] MEDS: MULTIVITAMIN (CENTRUM) TABLET PO SCH ×2 (09:17→20:35)
[2020-08-22] MEDS: FLUTICASONE 50 MCG NASAL SPRAY 16 GM BOTTLE BOTH NARES SCH (09:17)
[2020-08-22] MEDS: ASPIRIN EC 81 MG TABLET PO SCH (09:17)
[2020-08-22] MEDS: LOSARTAN 50 MG TABLET PO SCH (09:17)
[2020-08-22] MEDS: FAMOTIDINE 20 MG TABLET PO SCH ×2 (09:17→20:35)
[2020-08-22] MEDS: TICAGRELOR 60 MG PO SCH ×2 (09:17→20:36)
[2020-08-22] MEDS: cefTRIAXone 1,000 MG in SYRINGE 1 EACH IV SCH (16:38)
[2020-08-22] MEDS: MELATONIN 3 MG TABLET PO PRN (20:34)
[2020-08-22] MEDS: ENOXAPARIN 40 MG/0.4 ML SYRINGE SUBCUT SCH (20:35)
[2020-08-22] MEDS ORDERED: ROSUVASTATIN 20 MG TABLET PO SCH (21:00)
[2020-08-23] MEDS: ALBUTEROL INHALER 18 GM INH SCH ×3 (00:08→13:11)
[2020-08-23] MEDS: TICAGRELOR 60 MG PO SCH (08:11)
[2020-08-23] MEDS: ASPIRIN EC 81 MG TABLET PO SCH (08:12)
[2020-08-23] MEDS: MULTIVITAMIN (CENTRUM) TABLET PO SCH (08:13)
[2020-08-23] MEDS: LOSARTAN 50 MG TABLET PO SCH (08:13)
[2020-08-23] MEDS: DEXAMETHASONE 4 MG/1 ML VIAL IV SCH (08:13)
[2020-08-23] MEDS: FAMOTIDINE 20 MG TABLET PO SCH (08:14)
[2020-08-23] MEDS: OMEGA 3 ACID ETHYL ESTERS 1 GM CAPSULE PO SCH (08:14)
[2020-08-23] MEDS: ASCORBIC ACID 500 MG TABLET PO SCH (08:15)
[2020-08-23] MEDS: CETIRIZINE 10 MG TABLET PO SCH (08:15)
[2020-08-23] MEDS: ZINC GLUCONATE 50 MG TABLET PO SCH (08:15)
[2020-08-23] MEDS: CHOLECALCIFEROL 1,000 UNIT TABLET PO SCH (08:15)
[2020-08-23] MEDS: FLUTICASONE 50 MCG NASAL SPRAY 16 GM BOTTLE BOTH NARES SCH (08:16)
[2020-08-23 08:58] LABS: Albumin 2.3 G/DL (3.4-5.0); Bilirubin,Total 0.5 MG/DL (0.2-1.0); Calcium 8.4 MG/DL (8.5-10.1); Osmolality,Calculated 285.8 MOS/KG (273-304); Total Protein 6.4 G/DL (5.0-7.5)
[2020-08-23 11:31] VITALS: BP 121/69
== END 2020-08-23 14:15 | disposition home or self-care (01) | DRG 177 ==
LOC: N.2E 11:51 → SUATTDRO 11:51 → N.2E 12:16
PROVIDERS: ADMIT Internal Medicine; ATTEND Internal Medicine